=== PATIENT | female | born 1945 | race Caucasian/White ===

== ENCOUNTER 2023-07-17 06:44 | Day surgery (SDC) | payer MEDICARE, BC ==
[2023-07-13 10:19] VITALS: BMI 23.5
[2023-07-13 11:39] LABS: Hemoglobin 15.1 g/dL (12.0-15.5); Mean Corpuscular HGB CONC 34.3 g/dL (32.0-36.0); Mean Corpuscular Hemoglobin 30.2 pg (27.0-33.0); Platelet Count 262 10x3/uL (150-450); White Blood Cell (WBC) Count 5.3 10x3/uL (3.5-10.5)
[2023-07-17] MEDS ORDERED: CeleCOXIB 100 MG CAP ONE (08:00)
[2023-07-17] MEDS ORDERED: Famotidine/PF 20 mg/2ml Vial ONE (08:00)
[2023-07-17] MEDS ORDERED: Gabapentin 300 MG CAP ONE (08:00)
[2023-07-17] MEDS ORDERED: Bupivacaine PF 0.5% 30 ML VIAL ONE (08:34)
[2023-07-17] MEDS ORDERED: EPINEPHrine 1 MG/ML VIAL ONE (08:34)
[2023-07-17] MEDS ORDERED: CEFAZOLIN 2 GM VIAL ONE (08:48)
[2023-07-17] MEDS ORDERED: Lidocaine 1% w/Epinephrine 1:200K 30 ML VIAL ONE (08:50)
[2023-07-17] MEDS ORDERED: HYDROmorphone 0.5 MG/0.5 ML SYRINGE ONE (09:16)
[2023-07-17] MEDS ORDERED: Propofol 1,000 MG/100 ML VIAL IV ONE (09:16)
[2023-07-17] MEDS ORDERED: SUGAMMADEX SODIUM 200 MG/2 ML VIAL ONE (09:16)
[2023-07-17] MEDS ORDERED: Dexamethasone 4 mg/ml Vial ONE (09:18)
[2023-07-17] MEDS ORDERED: Ondansetron PF 4 MG/2 ML Vial ONE (09:18)
[2023-07-17] MEDS ORDERED: Rocuronium Bromide 10 MG/ML (10ML VIAL) ONE (09:18)
[2023-07-17] MEDS ORDERED: Lidocaine 1% PF 5 ML VIAL ONE (09:18)
[2023-07-17] MEDS ORDERED: Esmolol 100 MG/10 ML VIAL ONE (09:18)
[2023-07-17] MEDS ORDERED: fentaNYL 50 mcg/mL 1 mL Vial ONE (09:19)
[2023-07-17] MEDS ORDERED: Ketorolac Tromethamine 30 MG/ML VIAL ONE (10:20)
[2023-07-17] MEDS ORDERED: fentaNYL 50 mcg/mL 1 mL Vial SLOW IVP PRN (11:14)
[2023-07-17] MEDS ORDERED: Ondansetron PF 4 MG/2 ML Vial IVP PRN (11:14)
[2023-07-17] MEDS ORDERED: Simethicone Chewable 80 MG TAB PO PRN (11:14)
[2023-07-17] MEDS ORDERED: diphenhydrAMINE 25 MG CAP PO PRN (11:14)
[2023-07-17] MEDS ORDERED: Bisacodyl 10 MG SUPP PR PRN (11:14)
[2023-07-17] MEDS ORDERED: traMADol HCl 50 MG TAB PO PRN ×2 (11:14)
[2023-07-17] MEDS ORDERED: [UNRECOGNIZED DRUG - REMARK] PO SCH (11:45)
[2023-07-17] MEDS ORDERED: Metamucil PACK PO SCH (11:45)
[2023-07-17] MEDS ORDERED: PHENYLEPHRINE-NS 100 MCG/ML 10 ML SYRINGE ONE (14:14)
[2023-07-17] MEDS ORDERED: Glycopyrrolate 0.2 MG/ML 5 ML SYRINGE ONE (14:33)
[2023-07-17] MEDS ORDERED: Labetalol HCl 100 MG/20 ML VIAL SLOW IVP PRN (16:24)
[2023-07-17] MEDS: Ketorolac Tromethamine 30 MG/ML VIAL IVP SCH ×2 (16:40→20:12)
[2023-07-17] MEDS: Sodium Chloride 0.9% 1,000 ML IV SCH (20:31)
[2023-07-17] MEDS ORDERED: Docusate 100 MG CAP PO SCH (21:00)
[2023-07-18] MEDS: Ketorolac Tromethamine 30 MG/ML VIAL IVP SCH ×2 (00:44→06:40)
[2023-07-18] MEDS: Sodium Chloride 0.9% 1,000 ML IV SCH (00:49)
[2023-07-18 04:21] LABS: Hematocrit 37.4 % (34.9-44.5); Hemoglobin 12.6 g/dL (12.0-15.5); Mean Corpuscular HGB CONC 33.7 g/dL (32.0-36.0); Mean Corpuscular Hemoglobin 30.4 pg (27.0-33.0); Mean Corpuscular Volume 90.1 fl (81.6-98.3); Mean Platelet Volume 11.4 fl (7.4-10.4); Platelet Count 251 10x3/uL (150-450); RBC Distribution Width 13.2 % (11.5-14.5); Red Blood Cell (RBC) Count 4.15 10x6/uL (3.90-5.03); White Blood Cell (WBC) Count 10.6 10x3/uL (3.5-10.5)
[2023-07-18 04:43] VITALS: BP 156/69; TEMP 97.5
[2023-07-23] MEDS ORDERED: Ibuprofen 600 MG TAB PO SCH (06:00)
== END 2023-07-18 08:38 | disposition home or self-care (01) ==
LOC: CSHSDC 06:44 → CSHPED 12:36 → CSHSDC 07-18 08:38
PROVIDERS: ATTEND Obstetrics & Gynecology
PROC: 0UT94ZZ Resection of Uterus, Percutaneous Endoscopic Approach (ICD-10-PCS; principal; 2023-07-17)
PROC: 0UT24ZZ Resection of Bilateral Ovaries, Percutaneous Endoscopic Approach (ICD-10-PCS; 2023-07-17)
PROC: 0UT74ZZ Resection of Bilateral Fallopian Tubes, Percutaneous Endoscopic Approach (ICD-10-PCS; 2023-07-17)
PROC: 0JQC3ZZ Repair Pelvic Region Subcutaneous Tissue and Fascia, Percutaneous Approach (ICD-10-PCS; 2023-07-17)
DX: N81.3 Complete uterovaginal prolapse (principal); D25.2 Subserosal leiomyoma of uterus; N72 Inflammatory disease of cervix uteri; N81.2 Incomplete uterovaginal prolapse; N88.8 Other specified noninflammatory disorders of cervix uteri; R19.2 Visible peristalsis; N94.89 Other specified conditions associated with female genital organs and menstrual cycle; J40 Bronchitis, not specified as acute or chronic; Z88.5 Allergy status to narcotic agent; Z79.899 Other long term (current) drug therapy
CPT/HCPCS: 57260; 58571; 85027 ×2; 86850; 86900; 86901; J0171; J3010; 36415; 88307; J1100; J1170; J1885; J2405; J2704; J7050; S0020; S0028